=== PATIENT | male | born 1955 | race Caucasian/White ===

== ENCOUNTER 2021-07-31 08:56 | Day surgery (SDC) | payer OTHER ==
[2021-07-27 15:02] VITALS: BMI 27.4
[2021-07-31 09:48] VITALS: TEMP 98.2
[2021-07-31] MEDS ORDERED: PROPOFOL 20 ML ONE (09:49)
[2021-07-31 11:12] VITALS: BP 105/65; PULSE 77
== END 2021-07-31 11:35 | disposition home or self-care (01) ==
LOC: FASU-ENDO 08:56
PROVIDERS: ATTEND Internal Medicine Gastroenterology
PROC: 0DBC8ZX Excision of Ileocecal Valve, Via Natural or Artificial Opening Endoscopic, Diagnostic (ICD-10-PCS; principal; 2021-07-31 10:00)
DX: Z12.11 Encounter for screening for malignant neoplasm of colon (principal); Z80.0 Family history of malignant neoplasm of digestive organs; D12.0 Benign neoplasm of cecum
CPT/HCPCS: 88305-TC

== ENCOUNTER 2024-06-03 07:53 | Day surgery (SDC) | payer OTHER ==
[2024-05-29 15:10] VITALS: BMI 23.6
[2024-06-03 09:33] VITALS: RESP 18; TEMP 97.9
[2024-06-03 09:35] VITALS: PULSE 69
[2024-06-03 10:06] VITALS: BP 109/60
== END 2024-06-03 10:00 | disposition home or self-care (01) ==
LOC: FASU-ENDO 07:53
PROVIDERS: ATTEND Internal Medicine Gastroenterology
PROC: 0DBP8ZX Excision of Rectum, Via Natural or Artificial Opening Endoscopic, Diagnostic (ICD-10-PCS; principal; 2024-06-03 08:36)
DX: Z12.11 Encounter for screening for malignant neoplasm of colon (principal); K62.1 Rectal polyp; Z86.010 Personal history of colon polyps
CPT/HCPCS: 88305-TC